=== PATIENT | male | born 1990 | race Hispanic/Latino ===

== ENCOUNTER 2024-06-09 19:34 | Emergency (ER) | payer OTHER ==
[~2024-06-09] VITALS: Ht 180.3 cm; Wt 125.2 kg
[2024-06-09 19:46] VITALS: PULSE 89; RESP 18; TEMP 98.2
[2024-06-09 21:37] VITALS: BP 128/61; PULSE 66; RESP 16; TEMP 97.9; O2SAT 98
== END 2024-06-09 21:40 | disposition home or self-care (01) ==
LOC: FSED 19:40
DX: M54.6 Pain in thoracic spine (principal); S29.012A Strain of muscle and tendon of back wall of thorax, initial encounter; M25.562 Pain in left knee; Y93.83 Activity, rough housing and horseplay
CPT/HCPCS: 99283